=== PATIENT | male | born 1985 | race Asian ===

== ENCOUNTER 2019-03-30 09:09 | Outpatient (CLI) | payer MEDICAID ==
[~2019-03-30] VITALS: Ht 188 cm; Wt 117.9 kg
[2019-03-30] MEDS ORDERED: OMEGA 3 1,0001 EACH PO (11:39)
[2019-03-30 11:40] VITALS: BP 135/94
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
== END 2019-03-30 11:09 | disposition home or self-care (01) ==
LOC: PAN 09:09
DX: R94.5 Abnormal results of liver function studies (principal); K21.9 Gastro-esophageal reflux disease without esophagitis; I10 Essential (primary) hypertension; R74.0 Nonspecific elevation of levels of transaminase and lactic acid dehydrogenase [LDH]; K76.0 Fatty (change of) liver, not elsewhere classified
CPT/HCPCS: 99202